=== PATIENT | male | born 1955 | race Caucasian/White ===

== ENCOUNTER 2020-11-22 05:58 | Day surgery (SDC) | payer BC ==
--- NOTE | 2020-11-20 11:27 | PCM.PREANE ---
Preanesthetic Assessment - Procedure Proposed Procedure: Left Reverse Total Shoulder Arthroplasty - Anesthesia/Transfusion/Family Hx Anesthesia History: Prior Anesthesia Reaction Type of Anesthesia Reaction: Excessive Nausea/Vomiting Family History of Anesthesia Reaction: No Transfusion History: No Prior Transfusion(s) Intubation History: Unknown - Review of Systems General: No Symptoms Pulmonary: No Symptoms (1-2 beers/month) Cardiovascular: No Symptoms (Elevated lipids) Gastrointestinal: No Symptoms Neurological: No Symptoms, Headache - Physical Assessment NPO Status Date: 11/21/20 NPO Status Time: 18:00 Vital Signs: HR:73 Sat:93% Temp:98 B/P:138/85 Resp:16 Height: 1.7 m Weight: 77 kg ASA Class: 2 Mental Status: Alert & Oriented x3 Airway Class: Mallampati = 2 Dentition: Reports: Normal Dentition, Missing Tooth/Teeth, Caries Thyro-Mental Finger Breadths: 3 Mouth Opening Finger Breadths: 3 ROM/Head Extension: Full Lungs: Clear to Auscultation, Normal Respiratory Effort Cardiovascular: Regular Rate, Regular Rhythm, No Murmurs - Lab Values: All labs reviewed and noted and within acceptable ranges to proceed with scheduled procedure. - Imaging/EKG Impressions: EKG: SB rate=56, age indeterminant ? inferior infarct CXR: negative - Allergies Allergies/Adverse Reactions: Allergies Allergy/AdvReac Type Severity Reaction Status Date / Time No Known Allergies Allergy Verified 11/21/20 12:44 - Anesthesia Plan Pre-Op Medication Ordered: Other (Preoperative oral medications at: (lyrica, oxy codone, tylenol): 0628 scopalamine patch in preop area at:0628) - Acknowledgements Anesthesia Type Planned: General Anesthesia (With Left ISB under US guidance for post operative pain control requested by Dr. Sno.) Pt an Appropriate Candidate for the Planned Anesthesia: Yes Alternatives and Risks of Anesthesia Discussed w Pt/Guardian: Yes Pt/Guardian Understands and Agrees with Anesthesia Plan: Yes PreAnesthesia Questionnaire - HOME MEDS Home Medications: Home Meds Amoxicillin 500 mg PO ASDIRECTED PRN 11/21/20 [History] Cholecalciferol (Vitamin D3) [Vitamin D3] 2,000 unit PO DAILY 11/21/20 [History] Ibuprofen [Advil] 200 - 400 mg PO BID PRN 11/21/20 [History] Simvastatin 20 mg PO DAILY 11/21/20 [History] Tamsulosin HCl [Flomax] 0.4 mg PO DAILY 11/21/20 [History] Aspirin [Aspirin EC] 325 mg PO DAILY #40 tablet.dr 11/22/20 [Rx] Cyclobenzaprine [Flexeril] 10 mg PO BID PRN #20 tab 11/22/20 [Rx] oxyCODONE 5 - 10 mg PO Q4H PRN #40 tab 11/22/20 [Rx]
--- NOTE | 2020-11-20 11:29 | PCM.SN.2 ---
- Free Text/Narrative Note: Date: 11/22/2020 Time Out: 629 Start: 629 Stop: 644 Surgical Procedure: Left Reverse Total Shoulder Arthroplasty Diagnosis Left Shoulder OA Current Procedure: Left interscalene block under US guidance for postoperative pain control requested by Dr. Son. Patient chart reviewed, risk/benefits discussed with patient, consent obtained. Patient positioned supine, monitors/alarms on, oxygen placed via nasal cannula at 2 LPM. IV sedation administered: Versed 2mg IV, Fentanyl 50mcg IV given in preop prior to block placement. Left shoulder prepped with two chloropreps. Sterile drapes placed with aseptic technique noted. Under US guidance, Left subclavian artery visualized along with the left brachial plexus. Plexus followed up to C6 cricoid level, and area localized with 2mls of 1% lidocaine. 22gauge 2 inch stimiplex needle advanced under US with 0.6mV with stimulation of biceps noted. Good stimulation noted with decreased voltage and absent at 0.3mVs. 1ml of Normal Saline injected with loss of stimulation noted to confirm needle not placed intraneurally. Incremental dosing of 5mls with negative aspiration noted prior to each injection of 0.5% ropivacaine with 1:200,000 epinephrine. Total volume=30mls. Please refer to nurses noted for vital signs. Radha Prince CRNA
[~2020-11-22 05:58] MED LIST: Dexamethasone 4 MG/ML 5 ML MDV ONE; EPINEPHrine 1 MG/ML SDV ONE; Ketamine 500 mg/10 ML MDV ONE; Ketorolac 30 MG/ML SDV ONE; Lactated Ringers 1,000 ML IV SCH; Lactated Ringers 1,000 ML ONE; Lidocaine 1% 2 ML ONE; Lidocaine 1% 4 ML ONE; Lidocaine 1%/Sod Bicarbonate in NS 8.4% 1 ML Syringe IDERM PRN; Midazolam 1 MG/ML 2 ML SDV ONE; Ondansetron 4 MG/2 ML SDV ONE; Propofol 200 MG/20 ML SDV ONE; Rocuronium 50 MG/5 ML Vial ONE; Ropivacaine 0.5% 5 MG/ML 30 ML SDV ONE; Scopolamine 1.5 MG Transdermal Patch TRDERM ONE; Sodium Chloride 0.9% 10 ML Syringe FLUSH PRN; ceFAZolin 1 GM Vial ONE; fentaNYL 250 MCG/5 ML SDV ONE
[2020-11-22] MEDS ORDERED: Lactated Ringers 1,000 ML IV SCH (06:00)
[2020-11-22] MEDS ORDERED: Pregabalin 25 MG Cap PO ONE (06:19)
[2020-11-22] MEDS ORDERED: oxyCODONE ER 10 MG TAB.ER PO ONE (06:21)
[2020-11-22] MEDS ORDERED: Acetaminophen 325 MG Tab PO ONE (06:21)
[2020-11-22] MEDS ORDERED: Vancomycin 1 GM SDV ONE (06:36)
[2020-11-22] MEDS ORDERED: Ondansetron 4 MG/2 ML SDV IVPUSH PRN (07:40)
[2020-11-22] MEDS ORDERED: ePHEDrine 50 MG/ML SDV IVPUSH PRN (07:40)
[2020-11-22] MEDS ORDERED: Albuterol 0.083% 2.5 MG/3 ML Neb Soln NEB PRN (07:40)
[2020-11-22] MEDS ORDERED: fentaNYL 100 MCG/2 ML SDV IVPUSH PRN (07:40)
[2020-11-22] MEDS ORDERED: diphenhydrAMINE 50 MG/ML SDV IVPUSH PRN (07:40)
[2020-11-22] MEDS ORDERED: Midazolam 1 MG/ML 2 ML SDV IVPUSH PRN (07:40)
[2020-11-22] MEDS ORDERED: HYDROmorphone 0.5 MG/0.5 ML Syringe IVPUSH PRN (07:40)
[2020-11-22] MEDS ORDERED: ePHEDrine 50 MG/ML SDV ONE (07:48)
[2020-11-22] MEDS ORDERED: Lactated Ringers 1,000 ML ONE (08:53)
--- NOTE | 2020-11-22 09:24 | CR ---
Left shoulder: Three fluoroscopic spot views were obtained of the left shoulder. Study was performed utilizing C-arm device. Comparison: No previous study is available of the left shoulder. Findings: Reverse left shoulder prosthesis is seen. Components are aligned. Underlying bony structure shows no gross abnormality. Fluoroscopy time is given as 4.5 seconds. Impression: 1. Procedural study as noted above. Diagnostic code #2
--- NOTE | 2020-11-22 09:31 | PCM.POSTAN ---
POST ANESTHESIA ASSESSMENT - MENTAL STATUS Mental Status: Alert - VITAL SIGNS Vital Signs: Last Vital Signs Temp 97.4 11/22/20922 Pulse 76 11/22/20922 Resp 19 11/22/20922 BP 113/79 11/22/20922 Pulse Ox 94% 11/22/20922 - RESPIRATORY Respiratory Status: Respiratory Rate WNL, Airway Patent, O2 Saturation Stable, Supplemental Oxygen - CARDIOVASCULAR CV Status: Pulse Rate WNL, Blood Pressure Stable - GASTROINTESTINAL GI Status: No Symptoms - POST OP HYDRATION Hydration Status: Adequate & Stable
--- NOTE | 2020-11-22 11:31 | PCM48HPAN ---
Post Anesthesia Note - EVALUATION WITHIN 48HRS OF ANESTHETIC Vital Signs in Normal Range: Yes Patient Participated in Evaluation: Yes Respiratory Function Stable: Yes Airway Patent: Yes Cardiovascular Function Stable: Yes Hydration Status Stable: Yes Pain Control Satisfactory: Yes Nausea and Vomiting Control Satisfactory: Yes Mental Status Recovered: Yes Vital Signs: Last Vital Signs Temp 36.5 C 11/22/20 10:55 Pulse 64 11/22/20 10:55 Resp 16 11/22/20 10:55 BP 108/72 11/22/20 10:55 Pulse Ox 91 L 11/22/20 10:55
--- NOTE | 2020-11-23 11:20 | CR ---
Left shoulder: Single AP view of the left shoulder was obtained. Comparison: Prior operative study performed on the same day. Left shoulder prosthesis is seen of the reverse type. Slight degenerative change is noted within the acromioclavicular joint. No acute osseous abnormality is appreciated. Impression: 1. Reverse type left shoulder prosthesis. 2. No acute osseous finding is otherwise seen. Diagnostic code #2
--- NOTE | 2020-12-10 10:07 | PCM.OPNOTE ---
- General Post-Op/Procedure Note Date of Surgery/Procedure: 11/22/20 Operative Procedure(s): left reverse total shoulder arhtroplasty Pre Op Diagnosis: left shoulder rotator cuff tear arthropathy Post-Op Diagnosis: Same Anesthesia Technique: General ET Tube, Regional Block Primary Surgeon: Titi Son Anesthesia Provider: Radha Prince Engineering Technician: Geovanna Villavicencio Engineering Technician: Geno Galloway EBL in mLs: 200 Complications: None Condition: Good Free Text/Narrative:: 14 stem 28 baseplate 32+6 glenosphere +4 poly
--- NOTE | 2020-12-10 11:46 | OR ---
DATE OF OPERATION: 11/22/2020 SURGEON: Titi Son MD OPERATION PERFORMED: Left reverse total shoulder arthroplasty. PREOPERATIVE DIAGNOSIS: Left shoulder rotator cuff tear arthropathy. POSTOPERATIVE DIAGNOSIS: Left shoulder rotator cuff tear arthropathy. ANESTHESIA: General endotracheal intubation with regional interscalene block. ANESTHESIA PROVIDERS: Radha Prince CRNA and Geno Galloway LPN ESTIMATED BLOOD LOSS: 200 mL. COMPLICATIONS: None. CONDITION: Stable. IMPLANTS: 1. Watkins size 14 135-degree reverse total shoulder stem. 2. Watkins size 28 mm concentric base plate. 3. Gabo size 32 +6 mm glenosphere. 4. Watkins size +4 mm 32 poly. DESCRIPTION OF PROCEDURE: The patient was identified in the preoperative holding area. Proper site was marked and identified by the surgeon. The patient was taken back to the operating theater where after adequate anesthesia, the patient's left upper extremity was sterilely prepped and draped in the usual sterile fashion. OR time-out was performed. The patient received 2 g IV Ancef. He was placed in a reverse Trendelenburg position. Standard deltopectoral incision was made centered over the coracoid extending distally. This was taken down to the cephalic vein. Cephalic vein was identified and takedown and retractors placed subdeltoid. Clavipectoral fascia was incised. The conjoint tendon was retracted medially. The anterior humeral circumflexes were ligated. Biceps tendon was identified. #2 FiberWire was used to tack down the biceps tendon near the level of the pectoralis. It was then resected proximally going all the way back to the level of the glenoid. Peel down of the subscapularis tendon was done and the humeral head was dislocated. Humeral head cut was completed and found to be adequate. Attention was turned to the glenoid. Anterior and posterior glenoid retractors were placed. Circumferential removal of remaining labrum was done. Guide pin was placed in a center-center position with roughly 10% to 20 degrees of inferior tilt. 28 mm concentric reamer was then utilized until there was a positive smile sign with good bony bleeding bed. The guide pin was removed. Center screw was placed along with the concentric base plate. It was found to have good compression against the glenoid and inferior and superior locking screws were then placed and found to have adequate purchase. 32 +6 glenosphere was impacted into place and attention was turned to the humerus. I was able to use the canal reamers up to a size 14 and then broaches up to a size 14. It was found to be rotationally and vertically stable. Calcar planer was then utilized. Trial implants were then placed with a +4 liner, was found to have adequate tensioning of the deltoid and conjoint tendon. No signs of instability throughout range of motion with good range of motion and no liftoff noted. C-arm fluoroscopy was utilized showing no signs of fracture and all parts well aligned. Trial implants were then removed. Size 14 stem was constructed on the back table with a +4 liner and then this was impacted into the humerus. Humerus was then relocated. C-arm fluoroscopy was again utilized showing all parts IN proper position. 1 L of Irrisept irrigation was irrigated through the shoulder along with 1 L of pulsed lavage irrigation with Ancef. Topical tranexamic acid and vancomycin powder were applied. 2-0 Vicryl was used subcutaneously. Prineo was used for closure of the skin. The patient tolerated the procedure well and was sent to PACU in stable condition. MMODAL /[id number]
== END 2020-11-22 13:10 | disposition home or self-care (01) ==
LOC: JD.SDS 05:58
PROVIDERS: ATTEND Orthopaedic Surgery
DX: M75.102 Unspecified rotator cuff tear or rupture of left shoulder, not specified as traumatic (principal); M12.812 Other specific arthropathies, not elsewhere classified, left shoulder; E78.5 Hyperlipidemia, unspecified; Z90.49 Acquired absence of other specified parts of digestive tract; Z79.899 Other long term (current) drug therapy; Z98.890 Other specified postprocedural states
CPT/HCPCS: 23472; 73020; 76000; 97161; 97165; A9270; C1713; C1769; C1776; J0171; J0690; J1100; J1885; J2001; J2250; J2370; J2405; J2704; J2710; J2795; J3010; J3370; J7120; 01638; 64415